=== PATIENT | male | born 1980 | race Caucasian/White ===

== ENCOUNTER 2023-06-23 08:17 | Outpatient (CLI) | payer BC, MEDICAID ==
[~2023-06-23 08:17] MED LIST: ESOM40CA PO; HYDR-4353 PO; IBUP-1985 PO; LISI20TA28 PO
== END 2023-06-23 23:59 | disposition home or self-care (01) ==
LOC: RAD 08:17
PROVIDERS: ATTEND Family Medicine
DX: R19.03 Right lower quadrant abdominal swelling, mass and lump (principal)
CPT/HCPCS: 76705